=== PATIENT | female | born 1995 | race Caucasian/White ===

== ENCOUNTER → 2017-07-04 08:32 | Outpatient (CLI) | payer BC, SELFPAY ==
[2017-07-04 09:13] LABS: Erythrocyte Sedimentation Rate 5 mm/hr (0-20)
[2017-07-04 09:16] LABS: Hematocrit 42.1 % (37-47); Hemoglobin 13.7 g/dl (12.0-15.0); Mean Corp Hgb Conc 32.5 g/gl (32-36); Mean Corpuscular Volume 86.1 fL (81-99); Mean Platelet Vol. 11.3 fl (6.2-12.0); Platelet Count 235 K/mm3 (150-450); RBC Distribution Width CV 13.6 % (11.6-14.6); RBC Distribution Width SD 42.6 fl (35.1-43.9); Red Blood Count 4.89 M/mm3 (4.2-5.4); Scan Indicated on CBC? Y/N NO; White Blood Count 7.1 K/mm3 (4.4-11.0)
[2017-07-04 09:45] LABS: Vitamin B12 440 pg/mL (211-911); Vitamin D,25 Hydroxy 24.6 ng/mL (29.95-100.01)
[2017-07-04 09:47] LABS: AST(SGOT) 15 U/L (15-37); Alanine Aminotransfer ALT/SGPT 17 U/L (13-56); Albumin, Serum 3.9 g/dL (3.2-5.0); Alkaline Phosphatase 76 U/L (45-117); Anion Gap 4 (5-15); BUN 11 mg/dL (7-18); BUN/Creat Ratio 13.4 RATIO (10-20); Calcium,Total 9.1 mg/dL (8.5-10.1); Chloride 106 mmol/L (98-107); Creatinine, Serum 0.82 mg/dL (0.55-1.02); EST Glomerular Filtration Rate 92 mL/min (>60); Est Glom Filt Rate - Afr Amer 111 mL/min (>60); Ferritin 50 ng/mL (8-252); Globulin 3.8 g/dL (2.2-4.2); Glucose 77 mg/dL (74-106); Iron 120 ug/dL (50-170); Iron Binding Capacity,Total 374 ug/dL (250-450); Protein, Total 7.7 g/dL (6.4-8.2); Sodium Level 138 mmol/L (136-145); T4 Free Direct 0.96 ng/dL (0.76-1.46); Thyroid Stim Hormone (TSH) 2.02 uIU/mL (0.358-3.74)
[2017-07-05 16:24] LABS: ANTINUCLEAR ANTIBODIES DIRECT Negative (Negative)
== END ==
PROVIDERS: Family Provider Internal Medicine; PCP Internal Medicine; Visit Provider Internal Medicine
DX: R20.0 Anesthesia of skin (principal); R20.2 Paresthesia of skin; R53.83 Other fatigue
CPT/HCPCS: 36415; 80053; 82306; 82607; 82728; 83540; 83550; 84439; 84443; 85027; 85652; 86038; 86225; 86235

== ENCOUNTER → 2018-06-28 17:32 | Outpatient (CLI) | payer BC, SELFPAY ==
[2018-06-28 20:48] LABS: Chlamydia Trachomatis by PCR Negative (Negative); Neisserai gonorrhoeae by PCR Negative (Negative); Probe Check PASS; Sample Adequacy Control PASS; Specimen Processing Control PASS
[2018-07-03 14:49] LABS: HPV Reflexed? NOT INDICATED
== END ==
PROVIDERS: Family Provider Internal Medicine; PCP Internal Medicine; Visit Provider Obstetrics & Gynecology
DX: Z12.4 Encounter for screening for malignant neoplasm of cervix (principal); Z11.3 Encounter for screening for infections with a predominantly sexual mode of transmission
CPT/HCPCS: 87491; 87591; 88175; G0145

== ENCOUNTER → 2018-07-10 11:40 | Outpatient (CLI) | payer BC, SELFPAY ==
[2018-07-10 12:06] LABS: Absolute Lymphocyte Count 2.35 X10^3/ul (0.83-4.51); Basophil# 0.03 X10^3/uL; Basophil% 0.2 % (0-1); Eosinophil# 0.09 X10^3/uL; Eosinophils% 0.7 % (0-5); Hematocrit 41.2 % (37-47); Lymphocyte # 2.35 X10^3/ul (4.0); Lymphocyte % 19.1 % (19-41); Mean Corpuscular Hgb 28.3 pg (27.0-32.0); Mean Corpuscular Volume 83.2 fL (81-99); Mean Platelet Vol. 11.1 fl (6.2-12.0); Monocyte# 0.79 X10^3/uL; Monocyte% 6.4 % (0-10); Neutrophil # 9.03 X10^3/uL (2.7-7.7); Neutrophil % 73.3 % (47-70); POSITIVE COUNT NO; POSITIVE DIFFERENTIAL NO; POSITIVE MORPHOLOGY NO; Platelet Count 235 K/mm3 (150-450); RBC Distribution Width CV 13.6 % (11.6-14.6); RBC Distribution Width SD 40.7 fl (35.1-43.9); Red Blood Count 4.95 M/mm3 (4.2-5.4); White Blood Count 12.3 K/mm3 (4.4-11.0)
[2018-07-10 12:07] LABS: Color, Urine Yellow (Yellow); Glucose, Dipstick Normal (Normal); Ketone-Dipstick Negative (Negative); Leukocyte Esterase-Dipstick Negative /ul (Negative); Nitrite-Dipstick Negative (Negative); Occult Blood-Urine Negative /ul (Negative); Protein-Dipstick Negative (Negative); Urine Bilirubin Dipstick Negative (Negative); Urine Clarity Clear (Clear); Urine Urobilinogen Normal (Normal)
[2018-07-10 12:16] LABS: COTININE Drug Screen Negative (<200 ng/mL); Vista UDS pH Range 5
[2018-07-10 12:25] LABS: Amphetamine Urine VISTA NEGATIVE (<1000 ng/mL); Barbiturate Urine VISTA NEGATIVE (< 200 ng/mL); Benzodiazepine Urine VISTA NEGATIVE (< 200 ng/mL); Cocaine Urine VISTA NEGATIVE (< 300 ng/mL); Ecstacy Urine VISTA NEGATIVE (< 500 ng/mL); Methadone Urine VISTA NEGATIVE (< 300 ng/mL); PCP Urine VISTA NEGATIVE (< 25 ng/mL); THC Urine VISTA NEGATIVE (< 50 ng/mL)
[2018-07-10 12:43] LABS: Thyroid Stim Hormone (TSH) 1.15 uIU/mL (0.358-3.74)
[2018-07-10 13:23] LABS: HIV - WCH Non-Reactive (Nonreactive); Rubella IgG 177.3 IU/mL
[2018-07-11 17:50] LABS: HEPATITIS B SURFACE AG Negative (Negative); Hep C Antibodies <0.1 s/co ratio (0.0-0.9)
[2018-07-14 01:35] LABS: Prenatal RPR NONREACTIVE (NONREACTIVE)
== END ==
PROVIDERS: Visit Provider Obstetrics & Gynecology
DX: Z34.81 Encounter for supervision of other normal pregnancy, first trimester (principal)
CPT/HCPCS: 36415; 80307; 81002; 84443; 85025; 86703; 86762; 86803; 87340

== ENCOUNTER → 2018-08-17 | Outpatient (CLI) | payer BC, SELFPAY ==
[2018-08-21 19:38] LABS: PARVOVIRUS B19 IGG 5.1 index (0.0-0.8); PARVOVIRUS B19 IGM 0.2 index (0.0-0.8)
== END | disposition home or self-care (01) ==
PROVIDERS: Visit Provider Obstetrics & Gynecology
DX: Z34.82 Encounter for supervision of other normal pregnancy, second trimester (principal); Z20.828 Contact with and (suspected) exposure to other viral communicable diseases
CPT/HCPCS: 36415; 86747

== ENCOUNTER → 2018-11-27 09:00 | Outpatient (CLI) | payer BC, SELFPAY ==
[2018-11-27 10:48] LABS: Hematocrit 37.9 % (37-47); Hemoglobin 12.6 g/dL (12.0-15.0); Mean Corp Hgb Conc 33.2 g/dL (32-36); Mean Corpuscular Hgb 29.2 pg (27.0-32.0); Mean Corpuscular Volume 87.7 fL (81-99); Mean Platelet Vol. 11.6 fl (6.2-12.0); Platelet Count 200 K/mm3 (150-450); RBC Distribution Width CV 13.4 % (11.6-14.6); RBC Distribution Width SD 43.4 fl (35.1-43.9); Red Blood Count 4.32 M/mm3 (4.2-5.4); White Blood Count 12.1 K/mm3 (4.4-11.0)
[2018-11-27 10:57] LABS: Glucose Challenge Gest 1H 50g 99 mg/dL (70-140)
== END ==
PROVIDERS: Visit Provider Obstetrics & Gynecology
DX: Z34.83 Encounter for supervision of other normal pregnancy, third trimester (principal)
CPT/HCPCS: 36415; 82950; 85027

== ENCOUNTER 2018-12-21 11:49 | Outpatient (CLI) | payer BC, SELFPAY ==
[2018-12-21 12:16] VITALS: BMI 34.5
--- NOTE | 2018-12-21 12:47 | US_ITS ---
STUDY: SECOND AND THIRD TRIMESTER OBSTETRICAL ULTRASOUND REASON FOR EXAM: Female, 23 years old trauma LMP: TECHNIQUE: Transabdominal TECHNICAL QUALITY: Adequate. PRIOR ULTRASOUND: None. FINDINGS: There is a single intrauterine fetus. The fetus is in a cephalic presentation. There is demonstrated cardiac activity with a heart rate of 130 bpm. There is a normal amniotic fluid volume. The largest amniotic fluid pocket measures 4.95 cm. The amniotic fluid index (ALEXSANDRA) is 12.88 cm. The placenta is anterior There are Grade 1 placental changes. The cervix measures 3.09 cm in length. The bilateral adnexal regions are not visualized BIOMETRY: BPD: 8.54 cm: 34 weeks, 33 days HC: 30.02 cm: 33 weeks, 3 days AC: 30.49 cm: 34 weeks, 4 days FL: 6.42 cm: 33 weeks, 2 days CI: 0.83 FL/BPD: 0.75 FL/HC: FL/AC: 0.21 HC/AC: 0.98 age by current US: 34 weeks, 0 days. KENROY by current US: February 01, 2019. Estimated weight: 2317 grams, +/- 338 grams, 91 %. age by prior US: weeks, days. KENROY by prior US: . Age by LMP: 32 weeks, 1 days. KENROY by LMP: February 14, 2019. ANATOMY: Not studied at this time US/OB Limited With Biometrics IMPRESSION: Viable intrauterine gestation approximately 34 weeks gestational age. No significant abnormality Pending Final Proof Editing
[2018-12-21] MEDS: Betamethasone/Betamethasone 30 MG/5 ML Vial 12 MG IM (13:23)
--- NOTE | 2018-12-21 13:27 | HP.PCM_ITS ---
History and Physical Date of Admission: 12/21/18 HISTORY AND PHYSICAL History of this : 23 yo female Ab0 with EDC 02/14/2019 by Ultrasound, presents to Labor and Delivery from the office after a fall yesterday onto buttocks, Denies any abdo eder trauma and states no vaginal bleeding. Fetus is active. Declines coming to labor and delivery last night but ok with coming in to the office today. Shereports increased vaginal discharge and concerned re possible SROM. care remarkable for - 1.) wants to go natural for delivery. Plans TUB ROOM 2.) Fifth's disease exposure IgG positive. Prior immunity noted. Pertinent Past Medical History: Allergies: Zithromax Z-Cornell Medications During - + DHA 28 mg iron-800 mcg-200 mg oral pack REVIEW OF SYSTEMS: GENERAL - Denies fever, or chills SKIN - Denies skin changes EYES - Denies visual changes EARS - Denies difficulty hearing NOSE - Denies nasal congestion or bleeding MOUTH - Denies sore throat or difficulty swallowing NECK - Denies pain or swelling RESPIRATORY - Denies shortness of breath or wheezing CARDIOVASCULAR - Denies palpitations or chest pain GASTROINTESTINAL - Denies nausea, vomiting, diarrhea, constipation GENITOURINARY - Denies dysuria, frequency of urination, incontinence of urine MUSCULOSKELETAL - Denies joint or muscle pain NEUROLOGICAL - Denies localized numbness or weakness PSYCHIATRIC - Denies depression or anxiety ENDOCRINE - Denies heat or cold intolerance, weight loss or gain HEMATO-IMMUNOLOGIC - Denies excessive bleeding with cuts PAST HISTORY: Breast/Ovarian/Colon Cancers - Denies Infections - Chicken pox Illnesses - none Accidents - None History of Abnormal PAPS - Denies Hospitalizations - see surgery SURGICAL HISTORY: 1. Tonsillectomy 2007 2. [place] Teeth Removal MENSTRUAL HISTORY: LMP Known?- Definite Amount/Duration - 4 days, Regularity - Regular, Frequency - monthly days, LMP - 05/10/18, Age Onset Menarche - 11 PAST PREGNANCIES: Total Pregnancies - 1; Full Term Pregnancies - 0; Premature - 0; Abortions, Induced - 0; Abortions, Spontaneous - 0; Ectopics - 0; Multiple Births - 0; Living Children - 0 FAMILY HISTORY: Mother - FH: Rheumatoid arthritis; SOCIAL HISTORY: Alcohol Use - RARELY Smoking - denies smoking Diet - balanced Diet Lifestyle - Exercise - regular Seat Belt Use - always Employer - [employer] Job Description - book Keeper Illicit Drug Use - denies use of street drugs Sexual Activity - and ACTIVE [employer] Residence - rents an apartment Hours Worked - 40 hours per week Spouse-Sig Other Name - Emanuel Real Spouse-Sig Other Occupation - [employer] Spouse-Sig Other Phone No - [phone] Control - PHYSICAL EXAMINATION General Appearance: 23 yo female in no acute distress , A and O, conversant. Vital Signs: AF, VSS Lungs: regular rate and rhythm Breasts: deferred Abdomen: gravid Speculum exam (in office) cervix closed. neg pool, neg fern and Nitrazine negative. No vaginal bleeding noted. Movement: present Heart: Intial baseline in 130-140s with FHR deceleration then noted to 90-110 with v ariable onset and with good variability during deceleration. Intermittent tracing for return then to accels with return to baseline vs higher baseline with further variables (will continue to monitor) Impression /Plan: Intrauterine 32 1/7 wk EGA status post fall onto buttocks yesterday. ? SROM Now with FHR deceleration. Continue observation overnight CBC, type and hold Diet as tolerated S/L ROM plus test OB sono for growth, ALEXSANDRA. Betamethasone 12 mg IM today and repeat in 24 hrs. Continuous observation planned.
[2018-12-21 13:46] LABS: ROM Internal Control Test YES-OK TO RESULT pt. (Internal QC); ROM Patient Test Negative (Negative); Record Kit Lot#, ROM+ J8255
[2018-12-21 14:53] LABS: Group B Strep DNA By PCR POSITIVE (Negative); Probe Check PASS
[2018-12-22] MEDS: 0.9% NaCl Peripheral Flush Adult/Peds IV (00:09)
--- NOTE | 2018-12-22 07:30 | PCM.PN.OB ---
Patient Problems: Active and Suspected Problems (This Medical Record has been edited. Action required.) 32 weeks gestation of (Acute) Subjective: Denies contractions, leaking of fluid or vaginal bleeding. Fetus active overnight. Patient without complaints. Objective: AVSS - Physical Exam General: Alert, Oriented x3, Cooperative, No apparent distress HEENT: Atraumatic, Normocephalic Lungs: Clear to auscultation, Normal air movement Cardiovascular: Regular rate, Regular Rhythm, Normal S1, Normal S2 Abdomen: Soft, Non Tender, Non-Distended Extremities: No Calf Tenderness Neurological: Neuro grossly intact Psych/Mental Status: Normal Affect, Appropriate, Alert and oriented to time, place, person, mood and affect Comment: FHR 120, moderate variability, + accelerations no decelerations. TOCO 0/10 Weight: 100.017 kg Body Mass Index (BMI) 34.5 Intake and Output for Last 24 Hours 12/20/18 12/21/18 12/22/18 23:59 23:59 23:59 Intake Total 100 / 100 Output Total 100 / 100 Balance 0 / 0 Laboratory Tests Past 24 Hrs 12/21/18 12/21/18 12/21/18 13:00 13:00 23:58 Kleihauer-Betke F Hgb Pending Vag Amniotic Fld Detect Negative Group B Strep DNA POSITIVE H Specimen Comment Not Reportable Medical Necessity - Tobacco Use Smoking Status: Never smoker Assessment/Plan All Active Problems (This Medical Record has been edited. Action required.) 32 weeks gestation of (Acute) 23yo G1 @ 32 2/7wga admitted following a fall without abdominal trauma, however FHR prolonged deceleration was noted and patient had subsequent intermittent low baseline overnight. FHR overall reassuring however. -KB sent overnight, will not result until tomorrow -Plan for BPP this morning and if reassuring discharge to home -Betamethasone #2 today prior to discharge
--- NOTE | 2018-12-22 07:50 | US_ITS ---
STUDY: OBSTETRICAL ULTRASOUND - BIOPHYSICAL PROFILE REASON FOR EXAM: Female, 23 years old well being LMP: 05/10/2018 PRIOR ULTRASOUND: 34 weeks TECHNIQUE: Serial longitudinal and transverse scans of the maternal pelvis were performed utilizing real-time sector scanner. TECHNICAL QUALITY: Adequate. FINDINGS: There is a single intrauterine fetus. The fetus is in a variable position. There is demonstrated cardiac activity with a heart rate of 138 bpm. There is a normal amniotic fluid volume. The amniotic fluid index (ALEXSANDRA) is 13.4 cm. Age by LMP: 32 weeks, 2 days. KENROY by LMP: 02/14/2019 age by prior US: 34 weeks, 0 days. KENROY by prior US: 02/01/2019. age by current US: 34 weeks, 0 days. KENROY by current US: 02/01/2019. Gender: Male BIOPHYSICAL PROFILE: Breathing Movements (FBM): 2 Gross Body Movements (GBM): 2 Tone (FT): 2 Amniotic Fluid Volume (AFV): 2 TOTAL SCORE: US/Biophysical Profile IMPRESSION: Normal biophysical profile of 10/19. Electronically Signed: Neil Wilkerson, at 13:01 EDT Tel , Service support ,
[2018-12-22] MEDS: Betamethasone/Betamethasone 30 MG/5 ML Vial 12 MG IM (11:21)
[2018-12-22 14:09] LABS: Kleihauer-Betke Negative
== END 2018-12-22 11:35 | disposition home or self-care (01) ==
LOC: WPOUT 11:52 → WP 11:52
PROVIDERS: Obstetrics & Gynecology; Referring Provider Obstetrics & Gynecology; Visit Provider Obstetrics & Gynecology
DX: Z04.3 Encounter for examination and observation following other accident (principal); W19.XXXA Unspecified fall, initial encounter; Y93.9 Activity, unspecified; Y92.9 Unspecified place or not applicable; Y99.9 Unspecified external cause status; Z3A.34 34 weeks gestation of pregnancy
CPT/HCPCS: 36415; 59025; 59050; 76816; 76817; 76818; 84112; 85460; 87653; 96372; 99218; A4216; G0378; J0702

== ENCOUNTER 2019-02-14 03:00 | Inpatient (IN) | payer BC, SELFPAY ==
[2019-02-14 02:35] VITALS: BMI 38.0
[2019-02-14] MEDS: Lactated Ringers 500 ML 999 ML IV ×2 (03:12→04:30)
[2019-02-14 03:27] LABS: Absolute Lymphocyte Count 3.37 X10^3/uL (0.83-4.51); Absolute Neutrophil Count 9.8 X10^3/uL (2.0-7.7); Basophil# 0.07 X10^3/uL; Basophil% 0.5 % (0-1); Eosinophil# 0.12 X10^3/uL; Eosinophils% 0.8 % (0-5); Hematocrit 37.2 % (37-47); Hemoglobin 12.5 g/dL (12.0-15.0); Lymphocyte # 3.37 X10^3/ul (4.0); Lymphocyte % 23.2 % (19-41); Mean Corp Hgb Conc 33.6 g/dL (32-36); Mean Corpuscular Hgb 28.3 pg (27.0-32.0); Mean Corpuscular Volume 84.4 fL (81-99); Mean Platelet Vol. 12.4 fl (6.2-12.0); Monocyte# 1.12 X10^3/uL; Monocyte% 7.7 % (0-10); NRBC Flagged by Analyzer 0 % (0-5); Neutrophil # 9.76 X10^3/uL (2.7-7.7); Neutrophil % 67.1 % (47-70); Platelet Count 170 K/mm3 (150-450); RBC Distribution Width CV 14.5 % (11.6-14.6); Red Blood Count 4.41 M/mm3 (4.2-5.4); White Blood Count 14.5 K/mm3 (4.4-11.0)
[2019-02-14] MEDS: Lactated Ringers 1,000 ML 200 ML IV ×2 (03:50→08:45)
[2019-02-14] MEDS: fentaNYL-bupivacaine (epidural) 100 ML BAG EPIDURAL (04:25)
[2019-02-14] MEDS: Mag Hydrox/Al Hydrox/Simeth 30 ML UDC PO (04:54)
[2019-02-14] MEDS: Oxytocin 30 units/NS 500 ml 30 UNITS/500 ML IV.SOLN 167 UNITS IV (08:06)
--- NOTE | 2019-02-14 08:35 | HP.PCM_ITS ---
History and Physical Date of Admission: 02/14/19 OB HISTORY AND PHYSICAL EXAMINATION History of this : 23 yo female Ab0 with EDC 02/14/2019 by Ultrasound, presents to Labor and Delivery with painful UCs in early labor. care remarkable for - O positive. Rubella Immune. GBS Positive. 1.) MD for delivery 2.) EFW 3202g @ 36wga, 3.) TUB ROOM interest 4.) Fifth's disease exposure -- IgG positive. Prior immunity noted. Pertinent Past Medical History: Breast/Ovarian/Colon Cancers - Denies Infections - Chicken pox Illnesses - none Accidents - None History of Abnormal PAPS - Denies Hospitalizations - see surgery SURGICAL HISTORY: 1. Tonsillectomy 2007 2. 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 Neg ROM. Neg vaginal bleeding. PHYSICAL EXAMINATION General Appearance: 23 yo female in no acute distress , now comfortable w/ epidural Vital Signs: AF, VSS Lungs: regular rate and rhythm Breasts: deferred Abdomen: gravid Pelvis: adequate Cervix: 5 with BBOW then with AROM clear fluid. /-1 Presentation: cephalic Size: AGA Movement: present Heart: 120-130s avg variability Accels. UCs noted, irregular Impression /Plan: Intrauterine 40 wk early labor. Epidural placed and comfortable GBS prophylaxis initiated. Irreg UCs . Pitocin started titrate prn. AROM . Watch progress and descent.
[2019-02-14] MEDS: Ondansetron 4 MG/2 ML Vial IV (09:51)
[2019-02-14 16:24] VITALS: BP 114/58; PULSE 105; RESP 16; TEMP 36.4
[2019-02-14] MEDS: Ibuprofen 600 MG Tablet PO (17:28)
[2019-02-14 19:31] VITALS: BP 107/42; PULSE 93; RESP 18; TEMP 36.9
--- NOTE | 2019-02-14 20:52 | PCM.OPRPT ---
Problem List (1) 40 weeks gestation of Status: Acute (2) (spontaneous vaginal delivery) Status: Acute Report of Operation Date of Procedure: 02/14/19 Pre-Operative Diagnosis: 40wga, labor Post-Operative Diagnosis: 40wga, labor Surgery/Procedure Performed:: Vacuum assisted vaginal delivery Type of Anesthesia:: Epidural Vaginal Delivery Maternal Presentation: Active Labor Method of Induction: Pitocin Amniotic Membrane Rupture Type: Artificial Rupture of Membrane time: 81802/14/19 Amniotic Fluid Description: Clear Final KENROY: 02/14/19 Final KENROY Source: US <20 weeks Gestational age: 40 Weeks and 0 Days Date of Procedure: 02/14/19 Pre-Operative Diagnosis: 40 wga, labor Post-Operative Diagnosis: 40 wga, labor Surgery/ Procedure Performed: Vacuum Assisted Vaginal Delivery Anesthesiologist: Natasha Brito Type of Anesthesia: Epidural Description of Procedure: Patient FD/+4 on my arrival. JATIN. Pushed with excellent maternal effort however FHR Category II with prolonged decelerations. I advised vacuum assistance with review of risks, benefits. Patient agreed to proceed. The Kiwi was placed at the flexion point and 500 mmHg applied at approximately 1205. Three pulls with no pop-offs were performed over approximately 6 minutes with delivery of head. The suction was removed. Infant shoulders delivered with ease and a male infant was placed on the maternal abdomen. was further attended by nursery personnel. Cord was doubly clamped and cut. Cord gases were obtained. First degree perineal laceration repaired with 3-0 Vicryl Rapide. Sponge counts correct x 2. Presentation: Vertex Cord Vessel Description: 3 Vessels Cord Gases drawn per routine: ABG, VBG Drain: Chau to straight drain Estimated Blood Loss: 400 ml (1 minute): 8 (5 minute): 9 Laceration: Midline, 1st degree Medications given after delivery: IV Pitocin
--- NOTE | 2019-02-14 21:10 | DCINST_ITS ---
Discharge Diet: No Restrictions Discharge Activity: Return to Normal Activity, May Shower, May Take a Tub Bath May resume sexual activity in: 6 weeks Lifting Restrictions: 10 lb Suture Line Care: Avoid Pulling/Pushing Cleanse incision/area with: Soap & Water Additional Instructions: If you experience any of the following, contact your healthcare provider. * Bleeding that soaks a pad every hour for 2 hours * Fever 100.4 or higher * Unrelieved incision or abdominal pain * Swelling, redness, discharge or bleeding from your incision or episiotomy site * Your incision begins to separate * Problems urinating (including inability to urinate or burning while urinating). * Visual changes * Severe headache * Flu-like symptoms * Pain or redness in one of both of your breasts * Pain, warmth, tenderness or swelling in your legs, especially the calf area * Frequent nausea and vomiting * Symptoms of depression or anxiety If you experience any of the following, call 911 or go to the nearest Emergency Room. * Chest pain * Problems breathing * Seizure activity * Partial or complete paralysis of a body part, slurred speech, weakness or drooping of the face, or a sudden inability to walk or hold your balance Allergies/Adverse Reactions: Allergies azithromycin [From Zithromax] Adverse Reaction (Severe, Verified 02/14/19 02:36) stomach pain Medications to take at Discharge Calcium Carbonate [Tums] 200 mg PO PRN PRN 02/14/19 Docusate Sodium [Colace] 100 mg PO BID PRN PRN #60 cap 02/14/19 Ibuprofen 600 mg PO TID PRN #30 tab 02/14/19 Pnv No.95/Ferrous Fum/Folic AC [ Caplet] 1 tab PO DAILY 02/14/19 The following prescriptions were given: Docusate Sodium [Colace] 100 mg PO BID PRN PRN #60 cap PRN Reason: Constipation Transmission Status: Pending to [facility] Ibuprofen 600 mg PO TID PRN #30 tab PRN Reason: Pain Or Fever Transmission Status[id number] Please Follow Up With: Nhi Clay MD When: 6 weeks Primary Care Physician: Care Physician,No Primary [Primary Care Provider] - Test Results: Test results from this visit will be discussed in further detail at your follow- up appointment, if applicable.
[2019-02-15 00:19] VITALS: BP 106/46; PULSE 69; RESP 14; TEMP 36.7
[2019-02-15] MEDS: Ibuprofen 600 MG Tablet PO ×3 (00:27→15:42)
[2019-02-15 04:14] VITALS: BP 94/75; PULSE 76; RESP 16; TEMP 36.6
[2019-02-15] MEDS: Acetaminophen 500 MG Tablet 1000 MG PO ×3 (04:28→20:45)
[2019-02-15 08:00] VITALS: BP 110/55; PULSE 74; RESP 16; TEMP 36.3
[2019-02-15] MEDS: Senna/Docusate Sodium 1 Tablet PO ×2 (08:04→20:46)
--- NOTE | 2019-02-15 08:20 | PCM.PN.OB ---
Patient Problems: Active and Suspected Problems (This Medical Record has been edited. Action required.) 40 weeks gestation of (Acute) (spontaneous vaginal delivery) (Acute) Subjective: No issues overnight. Doing well. Denies heavy lochia. Objective: avss - Physical Exam Vitals/I&O's: Vital Signs Temp Pulse Resp BP 97.9 F 76 16 94/75 02/15/19 04:14 02/15/19 04:14 02/15/19 04:14 02/15/19 04:14 Oxygen Delivery Method Room Air Weight: 110.1 kg Body Mass Index (BMI) 38.0 Intake and Output for Last 24 Hours 02/13/19 02/14/19 02/15/19 23:59 23:59 23:59 Intake Total 4311.67 / 4311.67 Output Total 1600 / 1600 Balance 2711.67 / 2711.67 General: Alert, Oriented x3, Cooperative, No apparent distress HEENT: Atraumatic, Normocephalic Lungs: Normal air movement Cardiovascular: Regular rate, Regular Rhythm, Normal S1, Normal S2 Abdomen: Soft, Non Tender, Non-Distended, - - Fundus firm and nontender at 2 fw below umbilicus, lochia scant Extremities: No edema, No Calf Tenderness Neurological: Neuro grossly intact Psych/Mental Status: Normal Affect, Appropriate, Alert and oriented to time, place, person, mood and affect Current Medications Acetaminophen (Tylenol) 1,000 mg PO Q8H PRN PRN PRN Reason: Pain Score 1-3/10 Last Admin: 02/15/19 04:28 Dose: 1,000 mg Documented by: Bisacodyl (Dulcolax) 10 mg RECTAL UD PRN PRN Reason: If no BM Calcium Carbonate (Tums) 500 mg PO PRN PRN PRN Reason: INDIGESTION Dibucaine (Dibucaine) 1 applic TOPICAL TID PRN PRN; Protocol PRN Reason: Discomfort Hydrocortisone (Hytone) 1 applic TOPICAL TID PRN PRN; Protocol PRN Reason: Discomfort Ibuprofen (Motrin) 600 mg PO Q6H PRN PRN PRN Reason: Pain or Fever Last Admin: 02/15/19 07:50 Dose: 600 mg Documented by: Methylergonovine Maleate (Methergine) 0.2 mg IM X1 PRN PRN Reason: Excess bleeding/uterine atony Ondansetron HCl (Zofran) 4 mg IV Q4H PRN PRN PRN Reason: Nausea Multivit/Folic Acid/Iron (Prenatabs Fa) 1 tablet PO DAILY@1200 WENDI Senna/Docusate Sodium (Senokot-S, Alana-Colace) 1 - 2 tablet PO DAILY PRN PRN PRN Reason: Constipation Last Admin: 02/15/19 08:04 Dose: 1 tablet Documented by: Simethicone (Mylicon) 80 mg PO PCHS PRN PRN Reason: Indigestion/Stomach pain Sodium Chloride () 5 - 15 ml IV UD PRN PRN Reason: SALINE FLUSH Medical Necessity - Tobacco Use Smoking Status: Never smoker Assessment/Plan All Active Problems (This Medical Record has been edited. Action required.) 40 weeks gestation of (Acute) (spontaneous vaginal delivery) (Acute) 23yo PPD#1 s/p VAVD doing well. - -Rh positive -Routine care
[2019-02-15 13:00] VITALS: BP 126/72; PULSE 89; RESP 16; TEMP 36.9
[2019-02-15] MEDS: Prenatal Vits Tablet 1 TABLET PO (13:12)
[2019-02-15 15:40] VITALS: BP 118/57; PULSE 75; RESP 16; TEMP 36.9
[2019-02-15 18:00] VITALS: BP 111/55; PULSE 60; RESP 16; TEMP 36.3
[2019-02-16 02:00] VITALS: BP 97/50; PULSE 66; RESP 66; TEMP 36.5
[2019-02-16] MEDS: Ibuprofen 600 MG Tablet PO (07:51)
[2019-02-16] MEDS: Senna/Docusate Sodium 1 Tablet PO (07:52)
[2019-02-16 07:55] VITALS: BP 122/54; PULSE 86; RESP 18; TEMP 36.6
--- NOTE | 2019-02-16 08:21 | PCM.DC.SUM ---
Discharge Date and Diagnosis - Problem List Patient Problems: Active and Suspected Problems (This Medical Record has been edited. Action required.) 40 weeks gestation of (Acute) (spontaneous vaginal delivery) (Acute) Date of Admission: 02/14/19 Date of Discharge: 02/16/19 - Primary Discharge Diagnosis Active and Suspected Problems (This Medical Record has been edited. Action required.) 40 weeks gestation of (Acute) (spontaneous vaginal delivery) (Acute) Hospital Course and Treatment Summary of Care Provided: The patient is a 23 year old F [] Patient Problems: Active and Suspected Problems (This Medical Record has been edited. Action required.) 40 weeks gestation of (Acute) (spontaneous vaginal delivery) (Acute) Subjective: Feeling well. Pain is well controlled with Ibuprofen and Tylenol. Wants to continue stool softeners at home. Reports passing one small quarter size clot overnight, but lochia red and moderate to light. Objective: Sitting up in bed upon entering room. VSS. First degree with incision, painful, but well controlled with ice and oral medication. male with no concerns. - Physical Exam Vitals/I&O's: Vital Signs Temp Pulse Resp BP 97.9 F 86 18 122/54 H 02/16/19 07:55 02/16/19 07:55 02/16/19 07:55 02/16/19 07:55 Oxygen Delivery Method Room Air Weight: 110.1 kg Body Mass Index (BMI) 38.0 Intake and Output for Last 24 Hours 02/14/19 02/15/19 02/16/19 23:59 23:59 23:59 Intake Total 4311.67 / 4311.67 Output Total 1600 / 1600 Balance 2711.67 / 2711.67 General: Alert, Oriented x3, Cooperative HEENT: Atraumatic, PERRLA, EOMI, Normocephalic Neck: Supple, No JVD, Negative Carotid Bruits Lungs: Clear to auscultation, Normal air movement Cardiovascular: Regular rate, No murmurs Abdomen: Bowel Sounds Present, Soft, Non Tender, Passing Flatus, - - fundus u/2 Extremities: No edema, Capillary Refill Less than 3 Seconds Skin: No rashes, No breakdown Musculoskeletal: No Tenderness to Palpation of Joints or Extremities Neurological: Cranial nerves II-XII grossly intact Psych/Mental Status: Normal Affect, Appropriate Current Medications Acetaminophen (Tylenol) 1,000 mg PO Q8H PRN PRN PRN Reason: Pain Score 1-3/10 Last Admin: 02/15/19 20:45 Dose: 1,000 mg Documented by: Bisacodyl (Dulcolax) 10 mg RECTAL UD PRN PRN Reason: If no BM Calcium Carbonate (Tums) 500 mg PO PRN PRN PRN Reason: INDIGESTION Dibucaine (Dibucaine) 1 applic TOPICAL TID PRN PRN; Protocol PRN Reason: Discomfort Hydrocortisone (Hytone) 1 applic TOPICAL TID PRN PRN; Protocol PRN Reason: Discomfort Ibuprofen (Motrin) 600 mg PO Q6H PRN PRN PRN Reason: Pain or Fever Last Admin: 02/16/19 07:51 Dose: 600 mg Documented by: Methylergonovine Maleate (Methergine) 0.2 mg IM X1 PRN PRN Reason: Excess bleeding/uterine atony Ondansetron HCl (Zofran) 4 mg IV Q4H PRN PRN PRN Reason: Nausea Multivit/Folic Acid/Iron (Prenatabs Fa) 1 tablet PO DAILY@1200 WENDI Last Admin: 02/15/19 13:12 Dose: 1 tablet Documented by: Senna/Docusate Sodium (Senokot-S, Alana-Colace) 1 - 2 tablet PO DAILY PRN PRN PRN Reason: Constipation Last Admin: 02/16/19 07:52 Dose: 2 tablet Documented by: Simethicone (Mylicon) 80 mg PO PCHS PRN PRN Reason: Indigestion/Stomach pain Sodium Chloride () 5 - 15 ml IV UD PRN PRN Reason: SALINE FLUSH Discharge Diet: No Restrictions Discharge Activity: Return to Normal Activity, May Shower, May Take a Tub Bath May resume sexual activity in: 6 weeks Call your doctor if you observe: Fever of 101 or Higher, Coldness, Increased Pain, Numbness or Tingling, Change in Color, Inability to urinate, Inability to have a bowel movement, Using more than one pad per hour, Shortness of breath, Dizziness, Fainting spells, Swelling in the ankles, Chest pain, Increased palpitations (irregular heartbeat), Calf discomfort, Uncontrolled pain Suture Line Care: Avoid Pulling/Pushing Cleanse incision/area with: Soap & Water Home Medications: Medications to take at Discharge Calcium Carbonate [Tums] 200 mg PO PRN PRN 02/14/19 Docusate Sodium [Colace] 100 mg PO BID PRN PRN #60 cap 02/14/19 Ibuprofen 600 mg PO TID PRN #30 tab 02/14/19 Pnv No.95/Ferrous Fum/Folic AC [ Caplet] 1 tab PO DAILY 02/14/19 Following Prescrptions Were Given to Patient: Docusate Sodium [Colace] 100 mg PO BID PRN PRN #60 cap PRN Reason: Constipation Transmission Status: Received by [id number] Ibuprofen 600 mg PO TID PRN #30 tab PRN Reason: Pain Or Fever Transmission Status: Received by [id number] Primary Care Physician: Care Physician,No Primary [Primary Care Provider] - Please Follow Up With: Nhi Clay MD When: In 6 weeks Medical Necessity - Tobacco Use Smoking Status: Never smoker Meaningful Use Info Meaningful Use Diagnoses (Choose all that apply): None applicable
== END 2019-02-16 10:55 | disposition home or self-care (01) | DRG 807 ==
LOC: WPOUT 03:04
PROVIDERS: Admitting Provider Obstetrics & Gynecology; Referring Provider Obstetrics & Gynecology; Visit Provider Obstetrics & Gynecology
DX: O98.82 Other maternal infectious and parasitic diseases complicating childbirth (principal); Z37.0 Single live birth; B95.1 Streptococcus, group B, as the cause of diseases classified elsewhere; O99.214 Obesity complicating childbirth; E66.01 Morbid (severe) obesity due to excess calories; O76 Abnormality in fetal heart rate and rhythm complicating labor and delivery; O70.0 First degree perineal laceration during delivery; Z3A.40 40 weeks gestation of pregnancy
CPT/HCPCS: 59025; 59050; 85025; 86850; 86900; 86901; 99218; J7120; G0378; J2405

== ENCOUNTER → 2019-10-31 | Outpatient (CLI) | payer BC, SELFPAY ==
[2019-10-31 09:45] VITALS: BMI 38.0
[2019-10-31 12:34] LABS: Absolute Lymphocyte Count 2.46 X10^3/uL (0.83-4.51); Absolute Neutrophil Count 4.9 X10^3/uL (2.0-7.7); Basophil# 0.05 X10^3/uL; Basophil% 0.6 % (0-1); Eosinophil# 0.12 X10^3/uL; Eosinophils% 1.5 % (0-5); Hematocrit 42.7 % (37-47); Hemoglobin 13.6 g/dL (12.0-15.0); Lymphocyte # 2.46 X10^3/ul (4.0); Lymphocyte % 30.4 % (19-41); Mean Corp Hgb Conc 31.9 g/dL (32-36); Mean Corpuscular Hgb 26.5 pg (27.0-32.0); Mean Corpuscular Volume 83.2 fL (81-99); Mean Platelet Vol. 12.6 fl (6.2-12.0); Monocyte# 0.57 X10^3/uL; NRBC Flagged by Analyzer 0 % (0-5); Neutrophil # 4.87 X10^3/uL (2.7-7.7); Neutrophil % 60.3 % (47-70); Platelet Count 262 K/mm3 (150-450); RBC Distribution Width CV 15.2 % (11.6-14.6); Red Blood Count 5.13 M/mm3 (4.2-5.4); White Blood Count 8.1 K/mm3 (4.4-11.0)
[2019-10-31 12:53] LABS: AST(SGOT) 16 U/L (15-37); Alanine Aminotransfer ALT/SGPT 18 U/L (13-56); Albumin, Serum 3.8 g/dL (3.2-5.0); Alkaline Phosphatase 117 U/L (45-117); Anion Gap 4 (5-15); BUN 11 mg/dL (7-18); BUN/Creat Ratio 15.3 RATIO (10-20); Calcium,Total 8.8 mg/dL (8.5-10.1); Chloride 109 mmol/L (98-107); Creatinine, Serum 0.72 mg/dL (0.55-1.02); EST Glomerular Filtration Rate 105 mL/min (>60); Est Glom Filt Rate - Afr Amer 127 mL/min (>60); Globulin 3.9 g/dL (2.2-4.2); Glucose 80 mg/dL (74-106); Potassium 4.3 mmol/L (3.5-5.1); Protein, Total 7.7 g/dL (6.4-8.2); Sodium Level 141 mmol/L (136-145); Thyroid Stim Hormone (TSH) 1.64 uIU/mL (0.358-3.74)
== END | disposition home or self-care (01) ==
LOC: BIMLAB 10:27
PROVIDERS: PCP Internal Medicine; Referring Provider Nurse Practitioner Family; Visit Provider Nurse Practitioner Family
DX: I89.0 Lymphedema, not elsewhere classified (principal); R42 Dizziness and giddiness
CPT/HCPCS: 36415; 80053; 84443; 85025

== ENCOUNTER → 2020-05-26 13:00 | Outpatient (CLI) | payer OTHER, SELFPAY ==
[2020-05-26 11:22] VITALS: BMI 32.1
[2020-05-26 15:25] LABS: Absolute Lymphocyte Count 1.83 X10^3/uL (0.83-4.51); Absolute Neutrophil Count 3.7 X10^3/uL (2.0-7.7); Basophil# 0.03 X10^3/uL; Basophil% 0.5 % (0-1); Eosinophil# 0.12 X10^3/uL; Eosinophils% 1.9 % (0-5); Hematocrit 43.5 % (37-47); Lymphocyte # 1.83 X10^3/ul (4.0); Mean Corp Hgb Conc 29.9 g/dL (32-36); Mean Corpuscular Hgb 25.1 pg (27.0-32.0); Monocyte# 0.65 X10^3/uL; Monocyte% 10.3 % (0-10); NRBC Flagged by Analyzer 0 % (0-5); Neutrophil # 3.68 X10^3/uL (2.7-7.7); Neutrophil % 58.1 % (47-70); Platelet Count 282 K/mm3 (150-450); RBC Distribution Width CV 16.3 % (11.6-14.6); RBC Distribution Width SD 50.5 fl (35.1-43.9); Red Blood Count 5.18 M/mm3 (4.2-5.4); White Blood Count 6.3 K/mm3 (4.4-11.0)
[2020-05-26 15:45] LABS: AST(SGOT) 13 U/L (15-37); Alanine Aminotransfer ALT/SGPT 21 U/L (13-56); Alkaline Phosphatase 79 U/L (45-117); Anion Gap 5 (5-15); BUN 9 mg/dL (7-18); BUN/Creat Ratio 11.2 RATIO (10-20); Calcium,Total 9.3 mg/dL (8.5-10.1); Chloride 104 mmol/L (98-107); EST Glomerular Filtration Rate 92 mL/min (>60); Est Glom Filt Rate - Afr Amer 111 mL/min (>60); Globulin 3.9 g/dL (2.2-4.2); Glucose 79 mg/dL (74-106); Protein, Total 7.9 g/dL (6.4-8.2); Sodium Level 137 mmol/L (136-145)
== END ==
PROVIDERS: PCP Internal Medicine; Visit Provider Internal Medicine
DX: R10.10 Upper abdominal pain, unspecified (principal)
CPT/HCPCS: 36415; 80053; 85025

== ENCOUNTER → 2020-05-29 09:54 | Outpatient (CLI) | payer OTHER, SELFPAY ==
[2020-05-26 11:22] VITALS: BMI 32.1
--- NOTE | 2020-05-29 10:00 | US_ITS ---
STUDY: ABDOMINAL ULTRASOUND - RIGHT UPPER QUADRANT REASON FOR VISIT: Female, 25 years old upper abdominal pain TECHNIQUE: Ultrasound evaluation of the right upper quadrant was performed with real-time and static ferraro-scale imaging. TECHNICAL QUALITY: Adequate. COMPARISON: None. FINDINGS: Liver: The liver is mildly enlarged and measures 18.8 cm. There is normal echogenicity of the liver. The bile ducts are within normal limits. There is hepatic color flow. The direction of portal flow is hepatopetal. There is no demonstrated mass lesion. Gallbladder: Normal distended gallbladder. The gallbladder wall measures 1.7 mm. There is a negative sonographic Chavez''s sign. There is no pericholecystic fluid. There are no gallstones. Common Bile Duct (C.B.D.): The common bile duct measures 3.6 mm. Pancreas: Normal size of the head, body and tail of the pancreas. There is normal echogenicity of the pancreas. There is no demonstrated pancreatic mass or cyst. Right Kidney: Normal size of the right kidney. The right kidney measures 12.2 cm x 5.7 cm x 3.7 cm. Normal renal cortex. The right cortex measures 1.2 cm. There is no demonstrated renal mass or cyst. There is no right hydronephrosis. US/Abdomen Limited IMPRESSION: Mild hepatomegaly. Electronically Signed: Delfin Lamas MD at 13:05 EDT , Service support ,
== END ==
PROVIDERS: PCP Internal Medicine; Visit Provider Internal Medicine
DX: R10.10 Upper abdominal pain, unspecified (principal)
CPT/HCPCS: 76705

== ENCOUNTER → 2021-01-13 11:11 | Outpatient (CLI) | payer OTHER, SELFPAY ==
[2021-01-13 12:22] LABS: Absolute Neutrophil Count 5.1 X10^3/uL (2.0-7.7); Basophil# 0.06 X10^3/uL; Basophil% 0.7 % (0-1); Eosinophil# 0.18 X10^3/uL; Lymphocyte % 30.4 % (19-41); Mean Corp Hgb Conc 31.7 g/dL (32-36); Mean Corpuscular Hgb 26.5 pg (27.0-32.0); Mean Corpuscular Volume 83.5 fL (81-99); Monocyte# 0.79 X10^3/uL; Monocyte% 8.9 % (0-10); NRBC Flagged by Analyzer 0 % (0-5); Neutrophil # 5.13 X10^3/uL (2.7-7.7); Neutrophil % 57.7 % (47-70); Platelet Count 238 K/mm3 (150-450); RBC Distribution Width CV 16.4 % (11.6-14.6); RBC Distribution Width SD 49.7 fl (35.1-43.9); Red Blood Count 4.91 M/mm3 (4.2-5.4); White Blood Count 8.9 K/mm3 (4.4-11.0)
[2021-01-13 12:46] LABS: AST(SGOT) 14 U/L (15-37); Alanine Aminotransfer ALT/SGPT 17 U/L (13-56); Albumin, Serum 3.9 g/dL (3.2-5.0); Alkaline Phosphatase 81 U/L (45-117); Anion Gap 2 (5-15); BUN 11 mg/dL (7-18); BUN/Creat Ratio 13.5 RATIO (10-20); Calcium,Total 9.3 mg/dL (8.5-10.1); Chloride 108 mmol/L (98-107); Creatinine, Serum 0.81 mg/dL (0.55-1.02); EST Glomerular Filtration Rate 90 mL/min (>60); Est Glom Filt Rate - Afr Amer 109 mL/min (>60); Globulin 3.8 g/dL (2.2-4.2); Glucose 72 mg/dL (74-106); Potassium 4.4 mmol/L (3.5-5.1); Protein, Total 7.7 g/dL (6.4-8.2); Sodium Level 138 mmol/L (136-145); T4 Free Direct 0.89 ng/dL (0.76-1.46); Thyroid Stim Hormone (TSH) 1.75 uIU/mL (0.358-3.74)
== END ==
LOC: BIMLAB 11:11
PROVIDERS: PCP Internal Medicine; Referring Provider Internal Medicine; Visit Provider Internal Medicine
DX: F41.9 Anxiety disorder, unspecified (principal); F32.A Depression, unspecified
CPT/HCPCS: 36415; 80053; 84439; 84443; 85025